=== PATIENT | female | born 1950 | race Caucasian/White ===

== ENCOUNTER 2017-03-13 12:45 | Outpatient (RCR) | payer MEDICARE ==
[~2017-03-13 12:45] MED LIST: ASPIRIN 81M81 MG/TA2 PO; ASPIRIN E.C. 8181 MG PO; CEPHALEXIN500 M1 PO; CIPRO 500MG TA500 MG PO; COMBIVENT INH14.7 GM IH; COMPAZINE10 MG PO; CORDARONE200 MG PO; K-LOR CON; K-LOR CON PO; LASIX 40MG TABL40 MG PO; LEVAQUIN 5500 MG/TAB PO; LOPRESSOR 550 MG/TAB PO; LORTAB 5/500 501 TAB PO; NEULASTA6 MG/0.6 M; NORCO 325 MG-51 TAB PO; PARAPLATIN; TAXOL; TOPROL XL100 MG PO; VITAMIN D1000 IU PO
== END 2017-03-13 16:13 | disposition home or self-care (01) ==
LOC: WSPT 12:45
DX: R26.81 Unsteadiness on feet (principal); Z91.81 History of falling
CPT/HCPCS: G8978-GP; G8979-GP; G8980-GP

== ENCOUNTER 2017-06-22 14:00 | Outpatient (RCR) | payer MEDICARE | END 2017-06-25 14:08 | disposition home or self-care (01) | LOC: WSPT 14:00 | DX: R26.89 Other abnormalities of gait and mobility (principal); R53.1 Weakness | CPT/HCPCS: G8978-GP; G8979-GP ==

== ENCOUNTER 2018-07-16 13:30 | Outpatient (RCR) | payer MEDICARE | END 2018-07-19 11:57 | disposition home or self-care (01) | LOC: WSPT 13:30 | DX: R26.89 Other abnormalities of gait and mobility (principal) | CPT/HCPCS: G8978-GP; G8979-GP; G8980-GP ==

== ENCOUNTER 2019-08-26 11:00 | Outpatient (RCR) | payer MEDICARE | END 2019-08-31 13:22 | disposition home or self-care (01) | LOC: WSPT 11:00 | DX: R26.89 Other abnormalities of gait and mobility (principal) ==

== ENCOUNTER → 2020-08-16 | Outpatient (CLI) | payer MEDICARE | LOC: MC.RAD 15:30 | DX: Z12.31 Encounter for screening mammogram for malignant neoplasm of breast (principal) ==

== ENCOUNTER 2021-03-19 12:36 | Inpatient (IN) | payer MEDICARE ==
[~2021-03-19] VITALS: Ht 182.9 cm; Wt 76.4 kg
[~2021-03-19 12:36] MED LIST changes: +LOPRESSOR100 MG PO; -TOPROL XL100 MG PO
[2021-03-19] MEDS ORDERED: PRINIVIL10 MG PO (13:27)
[2021-03-19 13:58] VITALS: BP 114/57; PULSE 77; TEMP 97.4
[2021-03-19] MEDS ORDERED: ASPIRIN E.C. 8181 MG PO (14:52)
[2021-03-19 14:59] LABS: HEMATOCRIT 45.4 % (37.0-47.0); HEMOGLOBIN 15.1 g/dl (12.5-16.0); MEAN CELL VOLUME 89 fl (80.0-100.0); MEAN CORPUSCULAR HEMOGLOBIN 30 pg (27.0-31.0); MEAN CORPUSCULAR HGB CONC 33 g/dl (33.0-37.0); MEAN PLATELET VOLUME 11.6 fl (7.4-10.4); PLATELET COUNT 205 K/mm3 (130-400); RED BLOOD COUNT 5.08 M/mm3 (4.10-5.30); REDCELL DISTRIBUTION WIDTH-CV 14.5 % (11.5-14.5)
[2021-03-19 15:00] LABS: ARTERIAL BLD GAS O2 SATURATION 97.2 % (92-100); ARTERIAL BLD GAS TCO2 CT 25.3; ARTERIAL BLOOD GAS BASE EXCESS 0.6 (-2-2); ARTERIAL BLOOD GAS HCO3 24.2 meq/L (22-26); ARTERIAL BLOOD GAS pH 7.45 (7.35-7.45)
[2021-03-19 15:12] LABS: ALBUMIN 3.5 gm/dL (3.5-5.0); BILIRUBIN,TOTAL 1.6 mg/dL (0.0-1.0); CALCIUM 9.8 mg/dL (8.4-10.2); CREATININE, serum 0.83 (0.52-1.25); MAGNESIUM 1.8 mg/dL (1.6-2.3); POTASSIUM 3.6 mmol/L (3.4-5.0); TOTAL PROTEIN 7.1 gm/dL (6.4-8.2)
[2021-03-19 15:23] LABS: TROPONIN-I 0.014 ng/mL (0.000-0.035)
[2021-03-19 15:24] LABS: INR 1.2 (0.8-3.0); PROTHROMBIN TIME 13.7 SECONDS (9.7-12.8)
[2021-03-19 15:38] VITALS: BP 115/53; BP 117/68; BP 131/62; PULSE 68; PULSE 74; PULSE 78
[2021-03-19 15:41] LABS: BAND 2 % (0-10); LYMPHOCYTE 3 % (20.0-51.0); NEUTROPHILS 90 % (42.0-75.2)
[2021-03-19 15:42] LABS: TSH w REFLEX 2.32 uIU/mL (0.465-4.680)
[2021-03-19 15:43] LABS: PLATELET ESTIMATE NORMAL (NORMAL)
[2021-03-19 16:59] VITALS: BP 115/55; PULSE 66; TEMP 97.6
--- NOTE | 2021-03-19 17:54 | NUR ---
Patient arrived to floor at 1330 via wheelchair from admissions, at bedside. Patient is alert and oriented, answers questions appropriately, appears SOA and weak. Upon first VS check, patient was found to be at 83% SpO2 on RA, applied NC at 6L to get the patient to 93%. Patient has since been weaned to 4L. IV placed to RAC in one attempt, patient tolerated placement well. Labs drawn and patient to CT per order. IVF initiated. Patient denies needs at this time, call light within reach.
[2021-03-19 19:24] VITALS: BP 105/56; PULSE 79; TEMP 97.6
[2021-03-20 00:21] VITALS: BP 98/45; PULSE 67; TEMP 97.9
[2021-03-20 03:20] VITALS: BP 102/44; PULSE 68; TEMP 98.3
--- NOTE | 2021-03-20 06:30 | NUR ---
Received report form JONE Mcgill, patient lying in bed, alert and oriented.
[2021-03-20 07:26] LABS: BASO # 0.1 (0.0-0.2); BASO % 0.3 % (0.0-2.0); EOS % 0.2 % (0-4.0); GRAN # 12.2 (1.4-6.5); GRAN % 81.7 % (42.2-75.2); HEMATOCRIT 41.2 % (37.0-47.0); HEMOGLOBIN 13.6 g/dl (12.5-16.0); LYMPH # 1.6 (1.2-3.4); LYMPH % 10.4 % (20.0-51.0); MEAN CELL VOLUME 89 fl (80.0-100.0); MEAN CORPUSCULAR HEMOGLOBIN 29 pg (27.0-31.0); MEAN CORPUSCULAR HGB CONC 33 g/dl (33.0-37.0); MEAN PLATELET VOLUME 11.4 fl (7.4-10.4); MONO % 6.8 % (1.7-9.3); PLATELET COUNT 190 K/mm3 (130-400); RED BLOOD COUNT 4.62 M/mm3 (4.10-5.30); REDCELL DISTRIBUTION WIDTH-CV 14.5 % (11.5-14.5)
[2021-03-20 07:43] LABS: ALBUMIN 2.8 gm/dL (3.5-5.0); BILIRUBIN,TOTAL 1.2 mg/dL (0.0-1.0); CALCIUM 8.9 mg/dL (8.4-10.2); CREATININE, serum 0.75 (0.52-1.25); POTASSIUM 3.1 mmol/L (3.4-5.0); TOTAL PROTEIN 5.9 gm/dL (6.4-8.2)
[2021-03-20 08:03] VITALS: BP 110/51; PULSE 91; TEMP 98
--- NOTE | 2021-03-20 08:29 | NUR ---
Patient is lying in bed, alert and oriented, vss, reports no nausea or pain. Nasal canula was repositioned. Asked about home medications, explained they are on hold for physician orders. Call light within reach. No further needs right now.
[2021-03-20 12:19] VITALS: BP 102/52; PULSE 59; TEMP 97.6
--- NOTE | 2021-03-20 13:17 | NUR ---
First visit from the web assistant. No needs right now.
[2021-03-20 13:39] LABS: COLLECTION METHOD CLEAN CATCH
[2021-03-20 13:57] LABS: MUCOUS Present /lpf; PH 5 (5-8); URINE APPEARANCE Hazy; URINE BACTERIA Many /hpf; URINE BILIRUBIN Negative (NEGATIVE); URINE BLOOD Negative (NEGATIVE); URINE COLOR Yellow; URINE GLUCOSE Negative (NEGATIVE); URINE KETONE Negative (NEGATIVE); URINE LEUKOCYTE ESTERASE 2+ (NEGATIVE); URINE NITRATE Positive (NEGATIVE); URINE PROTEIN(semi-quant) Negative (NEGATIVE); URINE RBC 0-2 /hpf
--- NOTE | 2021-03-20 14:33 | NUR ---
Vocal Music Instructor met with patient and patient's , Diaz (ph#[phone]) to discuss discharge planning. Patient lives in [place] with her and also advised that her mother in law lives with them in the basement. Diaz advised that his sister is also around during the day as she does office work out of there home so there is usually always someone around at home. Patient sees Dr. Daniel for primary care and obtains medications from [facility] with no difficulties. Patient normally does not use DME but has a cane and walker at home. Patient states she was independent with ADLS up until a few days ago. Diaz advised that they have stool risers at home and he is also going to be installing more grab bars at home. Patient plans to return home upon discharge. SW reviewed PT's recommendation for Home Health services and patient is agreeable to this. SW provided Medicare.gov list of HH agencies and patient would like some time to review list. SW to continue to follow for patient choice. Discharge Plan: Home with Home Health
[2021-03-20 16:25] VITALS: BP 98/55; PULSE 98; TEMP 98
[2021-03-20 19:42] VITALS: BP 98/60; PULSE 103; TEMP 98.3
--- NOTE | 2021-03-20 20:00 | NUR ---
Report received, assumed care for shift commander. Assessment complete. VS stable. A&Ox3. Sitting up in bed watching TV. Denies nausea/pain/shortness of breath. States she is feeling better today compared to yesterday. States she still feels weak but was able to walk earlier on hi. Currently on room air. Plan of care discussed for this shift to include HS meds/antibiotics/calling for questions/concerns. Verbalizes understanding/denies needs. Call light in reach. Will monitor.
[2021-03-21] VITALS (7 sets, daily range): BP systolic 90–116; BP diastolic 43–88; PULSE 69–115; TEMP 97.4–98.1
[2021-03-21 06:44] LABS: BASO # 0.1 (0.0-0.2); BASO % 0.4 % (0.0-2.0); EOS # 0.1 (0.0-0.7); EOS % 0.9 % (0-4.0); GRAN # 8.6 (1.4-6.5); GRAN % 76.9 % (42.2-75.2); HEMATOCRIT 38.9 % (37.0-47.0); HEMOGLOBIN 12.8 g/dl (12.5-16.0); LYMPH # 1.2 (1.2-3.4); LYMPH % 10.9 % (20.0-51.0); MEAN CELL VOLUME 90 fl (80.0-100.0); MEAN CORPUSCULAR HEMOGLOBIN 30 pg (27.0-31.0); MEAN CORPUSCULAR HGB CONC 33 g/dl (33.0-37.0); MEAN PLATELET VOLUME 11.2 fl (7.4-10.4); MONO # 1.1 (0.1-0.6); MONO % 10.1 % (1.7-9.3); PLATELET COUNT 189 K/mm3 (130-400); RED BLOOD COUNT 4.33 M/mm3 (4.10-5.30); REDCELL DISTRIBUTION WIDTH-CV 14.5 % (11.5-14.5)
[2021-03-21 07:04] LABS: CALCIUM 8.5 mg/dL (8.4-10.2); CREATININE, serum 0.58 (0.52-1.25); POTASSIUM 3.4 mmol/L (3.4-5.0)
--- NOTE | 2021-03-21 09:05 | NUR ---
Pt awake and alert upon entry, sitting in recliner, Phy The in room with Pt. No C/O pain at this time. Shift assessments complete, left Pt call light in reach, sitting in the recliner.
--- NOTE | 2021-03-21 13:19 | NUR ---
Initial visit; Patient thanked Solutions Manager for looking in on her, visiting, and offering God's blessings and to keep her in Solutions Manager's prayers.
--- NOTE | 2021-03-21 15:51 | NUR ---
Coagulating Drying Supervisor met with patient and patient's , Diaz to review discharge plan. Diaz inquired about [facility] as his mother has stayed there before. Diaz then asked what PT/OT were recommending. MIKHAIL advised that PT/OT are recommending home with services. Patient would like to return home with HH services. Patient and patient's , Diaz reviewed Medicare.gov list of HH agencies and selected [facility] as first preference and [facility] as second preference. MIKHAIL contacted Amaya at [facility] and faxed referral. Amaya followed up with MIKHAIL and advised they can accept. Discharge Plan: Home with [facility].
--- NOTE | 2021-03-21 18:06 | NUR ---
Pt resting in the room today, no C/O pain throughout the day. Pt has been up to the recliner for several hours. Replaced tegaderm on IV site, area under the tegaderm is reddened but not tender, no leakage noted from IV site. VS remain stable.
--- NOTE | 2021-03-22 02:07 | NUR ---
Tele contacted this nurse to inform of pt.'s of ventricular tachycardia rythm. Tele informed nurse pt. had previous episode at 2138 with 9 beats and another VTACH rythm at 0155. Pt. VSS, physician notified and ordered cardiology consult and additional labs to be drawn. Will continue to monitor. Call light within reach.
[2021-03-22 03:26] LABS: HEMATOCRIT 39.8 % (37.0-47.0); MEAN CELL VOLUME 89 fl (80.0-100.0); MEAN CORPUSCULAR HEMOGLOBIN 29 pg (27.0-31.0); MEAN CORPUSCULAR HGB CONC 33 g/dl (33.0-37.0); MEAN PLATELET VOLUME 10.6 fl (7.4-10.4); PLATELET COUNT 204 K/mm3 (130-400); RED BLOOD COUNT 4.48 M/mm3 (4.10-5.30); REDCELL DISTRIBUTION WIDTH-CV 14.6 % (11.5-14.5)
[2021-03-22 03:38] LABS: CALCIUM 8.7 mg/dL (8.4-10.2); CREATININE, serum 0.58 (0.52-1.25); MAGNESIUM 1.7 mg/dL (1.6-2.3); POTASSIUM 4.1 mmol/L (3.4-5.0)
[2021-03-22 04:12] VITALS: BP 110/64; PULSE 67; TEMP 98.1
--- NOTE | 2021-03-22 05:52 | NUR ---
Pt. sitting up in bed, A/O x4, reports no pain, free of n/v/d. VSS. Slept on and off through out night. Piperacillin/Tazobactam running via IV right forarm 100mL at 200mL/hr.O2 NC 1L. Pt. expresses no further needs at this time. Call light within reach.
[2021-03-22 07:38] VITALS: BP 113/63; PULSE 59
--- NOTE | 2021-03-22 07:54 | NUR ---
Pt doing well at this time. She is sitting up in bed eating breakfast. She is not happy with the mechanical soft diet. States that she does pretty well with eating and that she knows the things that she shouldn't eat. No pain complaints. O2 at 1L
[2021-03-22] MEDS ORDERED: AMOXICILLIN 8751 TAB PO (11:18)
[2021-03-22] MEDS ORDERED: VENTOLIN0.09 MG IH (11:20)
[2021-03-22] MEDS ORDERED: PRINIVIL5 MG PO (11:34)
[2021-03-22] MEDS ORDERED: LASIX 20MG TABL20 MG PO (11:35)
[2021-03-22 11:49] VITALS: BP 112/62; PULSE 60; TEMP 98
--- NOTE | 2021-03-22 11:50 | NUR ---
Pt doing well, she is sitting up in the chair. She does have discharge orders, which she is aware of. States her ride will be here around 3:30. She has ordered some lunch, no other needs or complaints, will continue to monitor
--- NOTE | 2021-03-22 13:52 | NUR ---
Patient was able to be ambulatory on room air while walking up and down the hallway. Patients SPO2 upon returning to room was 96%.
--- NOTE | 2021-03-22 13:59 | NUR ---
Etl Data Architect attended clinical rounds with the team and patient to discharge home today with [facility]. SW contacted Amaya at [facility] and faxed discharge orders. MIKHAIL also provided patient's 's phone number to Amaya to set up the first visit. SW reviewed patient's exercise oximetry and patient will not qualify for home oxygen. [facility]
--- NOTE | 2021-03-22 14:40 | NUR ---
Reviewed discharge instructions with patient. INT removed from right forearm.
--- NOTE | 2021-03-22 15:06 | NUR ---
Pt escorted out at this time
[2021-06-27] MEDS ORDERED: LASIX 20MG TABL20 MG PO (12:20)
[2021-06-27] MEDS ORDERED: ZESTRIL 5MG5 MG PO (12:21)
== END 2021-03-22 15:06 | disposition home health service (06) | DRG 177 ==
LOC: MEDICAL 12:36
PROVIDERS: Nurse Practitioner Family; Physician Assistant; ADMIT Hospitalist
DX: J69.0 Pneumonitis due to inhalation of food and vomit (principal); J96.01 Acute respiratory failure with hypoxia; I42.8 Other cardiomyopathies; E44.0 Moderate protein-calorie malnutrition; E87.6 Hypokalemia; I48.0 Paroxysmal atrial fibrillation; R53.81 Other malaise; E78.5 Hyperlipidemia, unspecified; Z96.651 Presence of right artificial knee joint; I25.10 Atherosclerotic heart disease of native coronary artery without angina pectoris; R13.10 Dysphagia, unspecified; I95.9 Hypotension, unspecified; R63.4 Abnormal weight loss; Z68.21 Body mass index [BMI] 21.0-21.9, adult; Z85.118 Personal history of other malignant neoplasm of bronchus and lung; Z95.0 Presence of cardiac pacemaker; Z87.891 Personal history of nicotine dependence
CPT/HCPCS: 99222-AI; 99232-AI; 99239; J1650; J2543; J3475; J7030; Q9967

== ENCOUNTER → 2021-06-27 | Outpatient (CLI) | payer MEDICARE ==
[~2021-06-27] VITALS: Ht 175.3 cm; Wt 64.0 kg
[~2021-06-27] MED LIST changes: +AMOXICILLIN 8751 TAB PO; +LASIX 20MG TABL20 MG PO; +PRINIVIL10 MG PO; +PRINIVIL5 MG PO; +VENTOLIN0.09 MG IH; +ZESTRIL 5MG5 MG PO
[2021-06-27 12:23] VITALS: BP 119/79; PULSE 71; TEMP 97.9
--- NOTE | 2021-06-27 13:20 | NUR ---
pt to ct per wheelchair. Pt on ct in supine position. Monitors applied and O2 on at 2l/nc.
[2021-06-27 13:25] VITALS: BP 110/67; PULSE 60
[2021-06-27 13:30] VITALS: BP 93/71; PULSE 60
--- NOTE | 2021-06-27 13:33 | NUR ---
Specimens obtained and placed in cytolyt and formalin by Dr Hernandez. Specimen labeled.
[2021-06-27 13:35] VITALS: BP 114/73; PULSE 60
[2021-06-27 13:40] VITALS: BP 115/68; PULSE 62
[2021-06-27 13:45] VITALS: BP 114/78; PULSE 65
== END ==
LOC: COL.RAD 12:02
DX: E07.9 Disorder of thyroid, unspecified (principal); J98.59 Other diseases of mediastinum, not elsewhere classified
CPT/HCPCS: 32106

== ENCOUNTER 2023-01-01 11:02 | Outpatient (CLI) | payer MEDICARE ==
[~2023-01-01] VITALS: Ht 175.3 cm; Wt 52.8 kg
[2023-01-01 11:37] VITALS: BP 120/82; PULSE 60; TEMP 97.9
[2023-01-01] MEDS ORDERED: LIPITOR20 MG PO (13:31)
== END 2023-01-01 13:32 ==
LOC: EUO 11:02
DX: M81.0 Age-related osteoporosis without current pathological fracture (principal)
CPT/HCPCS: J3489

== ENCOUNTER 2024-02-15 13:11 | Inpatient (IN) | payer MEDICARE ==
[~2024-02-15] VITALS: Ht 180.3 cm; Wt 42.3 kg
[~2024-02-15 13:11] MED LIST changes: +LIPITOR20 MG PO
[2024-02-15] MEDS ORDERED: Azithromycin 500 MG in NS 250 ML IV ONE (14:30)
[2024-02-15] MEDS ORDERED: NS 1,000 ML IV ONE (14:30)
[2024-02-15] MEDS ORDERED: Mag/Al Hydrox/Simeth Susp 30 ML CUP PO ONE (14:30)
[2024-02-15] MEDS ORDERED: Albuterol/Ipratropium 3 MG-0.5 MG/3 ML Neb Soln IH ONE (14:30)
[2024-02-15] MEDS ORDERED: cefTRIAXone 2 G in Water For Injection,Sterile 20 ML IV ONE (14:30)
[2024-02-15 15:23] LABS: COLLECTION METHOD CLEAN CATCH
[2024-02-15 15:23] LABS: BASO # 0.1 K/mm3 (0.0-0.2); BASO % 0.6 % (0.0-2.0); EOS # 0.1 K/mm3 (0.0-0.7); EOS % 0.9 % (0.0-4.0); GRAN # 5.9 K/mm3 (1.4-6.5); GRAN % 71.7 % (42.2-75.2); HEMATOCRIT 41.1 % (37.0-47.0); HEMOGLOBIN 13.5 g/dl (12.5-16.0); LYMPH # 1.4 K/mm3 (1.2-3.4); MEAN CELL VOLUME 93 fl (80.0-100.0); MEAN CORPUSCULAR HEMOGLOBIN 31 pg (27-31); MEAN CORPUSCULAR HGB CONC 33 g/dl (33.0-37.0); MEAN PLATELET VOLUME 10.7 fl (7.4-10.4); MONO # 0.8 K/mm3 (0.1-0.6); MONO % 9.6 % (1.7-9.3); PLATELET COUNT 202 K/mm3 (130-400); RED BLOOD COUNT 4.42 M/mm3 (4.10-5.30)
[2024-02-15 15:40] LABS: ALBUMIN 3.3 gm/dL (3.4-4.8); CREATININE, serum 0.86 mg/dL (0.57-1.11); MAGNESIUM 1.9 mg/dL (1.6-2.6); POTASSIUM 4.3 mmol/L (3.5-4.5); TOTAL PROTEIN 6.6 gm/dL (6.2-8.1)
[2024-02-15 15:48] LABS: PH 6.5 (5.0-8.5); URINE APPEARANCE CLEAR (CLEAR/HAZY); URINE BLOOD NEGATIVE (NEGATIVE); URINE COLOR YELLOW (YELLOW); URINE GLUCOSE NEGATIVE (NEGATIVE); URINE KETONE NEGATIVE (NEGATIVE); URINE NITRATE NEGATIVE (NEGATIVE); URINE PROTEIN(semi-quant) 1+ (NEGATIVE)
[2024-02-15 15:57] LABS: INR 1.1 (0.8-3.0); PROTHROMBIN TIME 12.4 SECONDS (9.7-12.8)
[2024-02-15 16:00] LABS: PARTIAL THROMBOPLASTIN TIME 36.7 SECONDS (26.0-37.0); THYROID STIMULATING HORMONE 1.514 uIU/mL (0.350-4.940)
[2024-02-15 16:02] LABS: TROPONIN-I 0.053 ng/mL (0.00-0.033)
[2024-02-15 16:23] LABS: URINE RBC 0-2 /hpf (0-2)
[2024-02-15 16:24] LABS: MUCOUS PRESENT (NOT PRESENT)
[2024-02-15] MEDS ORDERED: Furosemide 40 MG/4 ML VIAL IV ONE (16:30)
[2024-02-15] MEDS ORDERED: Docusate Sodium 100 MG CAP PO PRN (17:00)
[2024-02-15] MEDS ORDERED: Acetaminophen 325 MG TAB PO PRN (17:00)
[2024-02-15] MEDS ORDERED: Polyethylene Glycol 3350 17 GM PDS PO PRN (17:00)
[2024-02-15] MEDS ORDERED: Ondansetron 4 MG/2 ML VIAL IV PRN (17:00)
[2024-02-15] MEDS ORDERED: VITAMIN D 50,1.25 MG PO (17:16)
[2024-02-15 18:05] VITALS: BP_SYST 109
--- NOTE | 2024-02-15 18:05 | NUR ---
PATIENT ARIVED FROM ER AWAKE AND ALERT. PATIENTS AT BEDSIDE. PATIENT ANSWERS ORIENTATION QUESTIONS APPROPRIATELY. PATIENT APPEARS TO BE SEVERELY MALNOURISHED. SHE HAS NO LOWER DENTURES IN CURRENTLY. PER PATIENTS SHE USED TO WEIGH 180 POUNDS BUT HAS BEEN DECLINING AT HOME. PATEINTS FEET WITH POOR CIRCULATION. SACRUM SLIGHTLY RED OTHER WINN INTACT. TATI LIGHT WITHIN REACH. MED REC UNABLE TO BE DONE. PATIENT AND UNAWARE OF MEDICATIONS TAKEN, PHARMACY CLOSED AT THIS TIME FOR CALL TO REVIEW. FALL PRECAUTIONS PU TIN PLACE. CALL LIGHT WITHIN REACH.
[2024-02-15 18:18] VITALS: BP 109/78; PULSE 108; TEMP 97.8
[2024-02-15] MEDS ORDERED: Lidocaine 2% (20 MG/ML) 20 ML UROJET UR ONE (19:00)
--- NOTE | 2024-02-15 19:00 | NUR ---
16F LERNER CATHETER PLACED, PATIENT DID NOT TOLERATED WELL. THIS RN SPOKE WITH NIGHT PA REGARDING PATIENTS ONGOING PAIN TO URETHRA AFTER FOLEUY INSERTION. PATIENT CONTIONUES TO MESS WITH HER CATHETER DESPITE EDUCATION AND DIRECTION FROM STAFF. UROJET ORDERED, SEE EMAR. PATIENT SITTING UP IN BED. CALL LIGHT WTIHIN REACH. BED ALARM ON.
[2024-02-15 19:34] VITALS: BP 113/80; PULSE 107; TEMP 97.5
--- NOTE | 2024-02-15 20:52 | NUR ---
LAB CALLED AT 20:17 WITH A TROPONIN OF 0.057. THIS INFORMATION WAS PROVIDED TO TISH MURPHY AT 20:24.
[2024-02-15] MEDS ORDERED: Furosemide 40 MG/4 ML VIAL IV SCH (21:00)
[2024-02-15 23:16] VITALS: BP 99/76; PULSE 96; TEMP 97.3
--- NOTE | 2024-02-15 23:59 | NUR ---
TISH SAMPSON CONTACTED REGARDING THE PATIENTS MARGINAL BP AND THE 40 OF IV LASIX THAT IS ORDERED. PER SELENA SERRA AT THIS TIME TO GIVE THE 40 OF IV LASIX.
[2024-02-16] VITALS (16 sets, daily range): BP systolic 82–113; BP diastolic 50–72; PULSE 69–111; TEMP 97–98.3
--- NOTE | 2024-02-16 00:02 | NUR ---
LAB CALLED AT 22:46 WITH A TROPONIN OF 0.056. TISH SAMPSON NOTIFIED OF THIS RESULT AT MIDNIGHT. NO NEW ORDERS.
[2024-02-16 07:33] LABS: BASO # 0.1 K/mm3 (0.0-0.2); BASO % 0.6 % (0.0-2.0); EOS % 0.4 % (0.0-4.0); GRAN # 5.2 K/mm3 (1.4-6.5); GRAN % 65.5 % (42.2-75.2); HEMOGLOBIN 14.3 g/dl (12.5-16.0); LYMPH # 1.8 K/mm3 (1.2-3.4); LYMPH % 22.1 % (20.0-51.0); MEAN CELL VOLUME 92 fl (80.0-100.0); MEAN CORPUSCULAR HEMOGLOBIN 30 pg (27-31); MEAN CORPUSCULAR HGB CONC 33 g/dl (33.0-37.0); MEAN PLATELET VOLUME 11.4 fl (7.4-10.4); MONO # 0.9 K/mm3 (0.1-0.6); PLATELET COUNT 228 K/mm3 (130-400)
[2024-02-16 07:37] LABS: CALCIUM 9.7 mg/dL (8.4-10.2); CREATININE, serum 0.88 mg/dL (0.57-1.11); POTASSIUM 3.5 mmol/L (3.5-4.5)
--- NOTE | 2024-02-16 07:39 | NUR ---
NURSING SHIFT ASSESSMENT COMPLETED. THE PATIENT IS ALERT BUT NOT FULLY ORIENTED. THE PATIENT DOESN'T ALWAYS SPEAK WHEN SPOKEN TO. WHEN THE PATIENT DOES SPEAK, SHE SPEAKS CLEARLY AND IS ABLE TO ANSWER MOST QUESTIONS CORRECTLY. THE PATIENT DENIED PAIN. CALL LIGHT WITHIN REACH, BED IN LOW POSITION, BED ALARM ON.
[2024-02-16] MEDS ORDERED: Albuterol/Ipratropium 3 MG-0.5 MG/3 ML Neb Soln IH PRN (10:00)
[2024-02-16] MEDS ORDERED: predniSONE 20 MG TAB PO SCH (10:00)
--- NOTE | 2024-02-16 10:20 | NUR ---
PT TRANSFERED OUT OF ROOM VIA WHEELCHAIR FOR THORA/ECHO ACCOMPANIED BY CARDIO STAFF.
[2024-02-16 12:40] LABS: PLEURAL FLUID RBC 2000 /mm3 (0-0); PLEURAL FLUID WBC 734 /mm3
[2024-02-16 12:50] LABS: PLEURAL FLUID APPEARANCE HAZY; PLEURAL FLUID COLOR YELLOW
--- NOTE | 2024-02-16 12:52 | NUR ---
SEE VITAL SIGNS FLOW SHEET FOR POST OP VITALS STARTING AT 11:30. [facility] STUDENT KAREN.
[2024-02-16] MEDS ORDERED: Albuterol/Ipratropium 3 MG-0.5 MG/3 ML Neb Soln IH SCH (13:00)
[2024-02-16] MEDS ORDERED: NS 500 ML IV ONE (15:15)
--- NOTE | 2024-02-16 16:18 | NUR ---
flat screen worker met with patient's nurse to determine any concerns. Nurse reports patient's has been very protective of patient and answering questions for her. SHILOH contacted OT whom visited with patient and they stated they would be recommending home with home health. SHILOH met with patient and her , Diaz, P# [phone]. Patient lives in [place] with her . PCP is Dr. Daniel, patient/ reports patient was seen by PCP in September/October. Pharmacy is [facility]. No issues affording medications. Patient reports she has a DPOA-HC with Diaz as the primary, but does not have a copy. Diaz reports her PCP may have a copy. DME is a cane, shower chair and SW notes she has a rollator walker. Patient reports she was previously independent with ADLS. SW discussed feeding. Patient reports she is eating okay but reports that she has been aspirating on food and has had trouble with swallowing her food. Patient and are open to SNF if patient is needing these services and is familiar with the social science manager at [facility] and may be interested in going there but would like the Medicare.gov list if SNF is recommended at time of discharge. SHILOH provided the Medicare.gov list of home health services as this is the current recommendation from OT. SHILOH explained she would continue to follow patient's care and recommendations. Patient and understand. Shiloh left a voicemail for Huyen at [facility]. Discharge plan: Home with home health pending medical recommendations, open to going to a SNF
--- NOTE | 2024-02-16 19:05 | NUR ---
PATIENT RESTING IN BED WITH TV ON WITH NO FAMILY PRESENT WITH NO ACUTE DISTRESS NOTED. PATIENT ON ROOM AIR. INT TO LEFT AC INTACT WITH NO COMPLICATIONS NOTED. TELEMETRY INTACT. LERNER CATH INTACT, PATENT, AND DRAINING CLEAR YELLOW URINE. PATIENT DENIES ANY NEEDS. PATIENT CARE ASSUMED FROM CHANO AT THIS TIME. BED IN LOW POSITION WITH WHEELS LOCKED WITH RAILS UP X3 AND CALL LIGHT WITHIN REACH.
[2024-02-16] MEDS ORDERED: Atorvastatin 20 MG TAB PO SCH (21:00)
--- NOTE | 2024-02-16 23:16 | NUR ---
PATIENT RESTING IN BED WITH TV ON WITH NO ACUTE DISTRESS NOTED. PATIENT ON ROOM AIR. INT TO LEFT AC INTACT WITH NO COMPLICATIONS NOTED. LERNER CATH INTACT, PATENT, AND DRAINING CLEAR YELLOW URINE. ASSESSMENT AND MEDICATION ADMINISTRATION COMPLETED AT THIS TIME. PATIENT TOLERATED WELL. PATIENT REQUESTED WATER AND WAS GIVEN ICE WITH WATER IN A CUP. MEDICATIONS TAKEN WITH SOME APPLE SAUCE. ALL NEEDS MET. BED IN LOW POSITION WITH WHEELS LOCKED WITH RAILS UP X3 AND CALL LIGHT WITHIN REACH. BED ALARM ON.
[2024-02-17] VITALS (13 sets, daily range): BP systolic 72–110; BP diastolic 45–73; PULSE 86–100; TEMP 97.5–99.6
--- NOTE | 2024-02-17 01:45 | NUR ---
PATIENT ALERT AND AGITATED. PATIENT ATTEMPTING TO CLIMB OUT OF BED. WHEN ASKED WHERE SHE WAS GOING SHE STATED "IM GOING TO GO GET SOME WATER." PATIENT ASSISTED BACK TO BED. PATIENT INFORMED OF BEING NPO FOR YEHUDA SCAN IN AM. PATIENT AGITATED ABOUT NOT BEING ABLE TO HAVE WATER AND STATED "IT'S ONLY 3." PATIENT ATTEMPTED TO BE REORIENTED BUT FAILED.
--- NOTE | 2024-02-17 06:34 | NUR ---
PATIENT CONTINUES TO BE AGITATED DUE TO NOT BEING ABLE TO DRINK WATER. PATIENT REFUSED MORNING LAB DRAW. PRIMARY NURSE IN TO TALK TO PATIENT TO EXPLAIN. PATIENT OBSERVED RASING HER HANDS SHACKING THEM IN THE AIR AND KNOCKING ON HER LEGS. PATIENT ALERT BUT CONFUSED. STATING "MAYBE TOMORROW" EVEN WHEN PRIMARY NURSE IS EXPLAINING IT IS 0630 IN THE MORNING.
--- NOTE | 2024-02-17 08:00 | NUR ---
Patient is resting in bed, alert and oriented x 3, asking why she can not get food or water, educated about the scheduled procedure. Student nurse at bedside. Expected to have a lexiscan at 1030am. Assessment completed. Bed alarm on. Call light within reach. Catheter chávez in place, tele in place, Vpaced. No further needs at this time.
--- NOTE | 2024-02-17 08:47 | NUR ---
0730 pt a/o x 4, left lung sounds diminished, right upper clear, 02 sat @ 97 on RA. reddness noted to cocax area skin intract, repositioned to right side. INT L AC site intact no redness. no c/o of pain at this time
[2024-02-17 09:01] LABS: CALCIUM 9.7 mg/dL (8.4-10.2); CREATININE, serum 0.86 mg/dL (0.57-1.11); POTASSIUM 4.4 mEq/L (3.5-4.5)
[2024-02-17 09:15] LABS: MAGNESIUM 2.1 mg/dL (1.6-2.6)
--- NOTE | 2024-02-17 12:23 | NUR ---
elementary school social worker contacted Dr Daniel's office and spoke with Dr Daniel, patient's primary care provider for several years. Dr Daniel stated that she has previously tried to get patient to admit to the [facility] hospice house, however patient and spouse declined. Worker collaborated with Dr Sparks regarding Dr Daniel's statement that patient has terminal diagnosis of CHF and failure to thrive and she supports Hospice House and would follow patient's care there. Worker attended Palliative care meeting with Dr Sparks and multi disciplinary rounding team. Patient and spouse very tearful, however, agree to Hospice house. Worker face timed Dr Daniel, who spoke with patient and spouse and provided assurances that patient would receive great care and that she would follow and give all orders needed. Worker confirmed that [facility] has open beds availability. Referral made to [facility]. Await their screening. Worker advised that patient would transfer via ambulance when accepted today or tomorrow.
--- NOTE | 2024-02-17 14:07 | NUR ---
Initial visit; Patient very upset waiting for a to come in. She said she was due for tests and hasn't eaten yet and very uncomfortable. Band Director soothed her (at least for the time she was visiting) and offered an explanation why 'chastity are sometimes late and also offered prayer for Nirali. Nirali has since become a patient on Palliative Care. Band Director had mentioned that she would keep her in Band Director's prayers and will follow-up.
--- NOTE | 2024-02-17 14:53 | NUR ---
lithopone mill worker contacted [facility] to determine if they are able to accept patient. Jaime Coleman is still reviewing and will follow up with social staff worker before end of today. Jaime Coleman will be contacting the family members to discuss any questions. MIKHAIL met with family members and provided the phone number to Jaime Coleman so they can ensure they answer the number when it comes through. Discharge plan: [facility]
--- NOTE | 2024-02-17 16:16 | NUR ---
Social work student called [facility] and scheduled transportation for 9:30 am to set up transportation to [facility].
--- NOTE | 2024-02-17 16:46 | NUR ---
biofuels plant construction worker was notified patient was approved for [facility]. [facility] asked if patient is a DNR/DNI and if they are putting a drain in for the fluid. Patient is going to room 3 and [facility] would like to have patient transported tomorrow around 9:30 am. MIKHAIL studentRuth, scheduled EMS for 9:30 am tomorrow morning. MIKHAIL met with patient and her and explained patient would be picked up tomorrow at 9:30 am. Diaz asked if patient perks up and is able to discharge from Hospice is that a thing. MIKHAIL explained patient will have Dr. Daniel following her and she will be able to continue to follow her care. Diaz understood. Discharge plan: [facility]
--- NOTE | 2024-02-17 17:27 | NUR ---
1305 flushed iv site and changed tegaderm dressing. Cleansed area around site containing dry blood. pt tolerated well. no redness or swelling. patient comfortable in bed at this time.
--- NOTE | 2024-02-17 17:32 | NUR ---
repositioned pt at 1407. There is a reddened area on her coccyx approximitely the size of a fist. Area is blanchable. Pt is comfortable in bed on her right side. No c/o SOA at this time. mucous membranes dry, urine out put 230ml poor skin turgour. encouraged fluids.
--- NOTE | 2024-02-17 17:33 | NUR ---
Rechecking pt BP since SBP was in 70's. Patient alert and oriented, denies any discomfort. Rechecking SBP right arm 83/52, left arm 77/45. Call placed to Dr. Sparks, verbal order to give bolus 500 NS at 75mls/hr.
[2024-02-17] MEDS ORDERED: NS 500 ML IV SCH (17:45)
[2024-02-17] MEDS ORDERED: Morphine Oral Concentrate 20 MG/ML UD SL PRN (18:15)
[2024-02-17] MEDS ORDERED: Haloperidol Lactate 5 MG/ML VIAL IV PRN (18:15)
[2024-02-17] MEDS ORDERED: LORazepam 2 MG/ML 1 ML VIAL IV PRN (18:15)
[2024-02-17] MEDS ORDERED: Scopolamine 1 MG Delivered 3-Day PATCH TD SCH (18:15)
[2024-02-17] MEDS ORDERED: Carboxymethylcellulose PF Ophth 0.4 ML DROPPERETTE OP PRN (18:15)
--- NOTE | 2024-02-17 19:12 | NUR ---
PATIENT RESTING IN BED WATCHING TV WITH NO FAMILY PRESENT WITH NO ACUTE DISTRESS NOTED. PATIENT ON ROOM AIR. NS INFUSING INTO LEFT AC WITH NO COMPLICATIONS NOTED. LERNER CATH INTACT AND DRAINING CLEAR YELLOW URINE. PATIENT DENIES ANY NEEDS AT THIS TIME. PATIENT CARE ASSUMED FROM ROSSY. BED IN LOW POSITION WITH WHEELS LOCKED WITH RAILS UP X3 AND CALL LIGHT WITHIN REACH. BED ALARM ON.
--- NOTE | 2024-02-17 19:40 | NUR ---
PATIENT SITTING UP IN BED WATCHING TV WTIH NO FAMILY PRESENT WITH NO ACUTE DISTRESS NOTED. PATIENT ON ROOM AIR. NS INFUSING INTO LEFT AC WITH NO COMPLICATIONS NOTED. ASSESSMENT AND MEDICATION ADMINISTRATION COMPLETED AT THIS TIME. PATIENT TEARFUL AND WAVING HAND IN HEAR WHILE TALKING TO PRIMARY NURSE. ATIVAN GIVEN FOR ANXIETY. PATIENT TOLERATED WELL. PUDDING GIVEN WITH MEDICATIONS AND CUP OF ICE PER PATIENT REQUET. ALL NEEDS MET. BED IN LOW POSITION WITH WHEELS LOCKED WITH RAILS UP X3 AND CALL LIGHT WITHIN REACH. BED ALARM ON.
[2024-02-18] VITALS: BP 94/56; PULSE 87; TEMP 98.5
[2024-02-18 00:15] VITALS: BP_SYST 94
[2024-02-18 04:00] VITALS: BP 88/62; PULSE 87; TEMP 98
[2024-02-18] MEDS ORDERED: ASPIRIN 81M81 MG/TA2 PO (08:52)
[2024-02-18] MEDS ORDERED: IPRATROPIUM BROM3 M1 IH (08:52)
[2024-02-18] MEDS ORDERED: DULCOLAX S10 MG/SUPP RC (08:53)
[2024-02-18] MEDS ORDERED: TRANSDERM-0.5 MG/21 TD (08:53)
[2024-02-18] MEDS ORDERED: SYSTANE 0.4%-0.1 SOL OU (08:53)
[2024-02-18] MEDS ORDERED: ROXANOL 20MG20 MG/ML SL (08:55)
[2024-02-18] MEDS ORDERED: ATIVAN 1MG T1 MG/TAB PO (08:55)
[2024-02-18 09:00] VITALS: BP_SYST 89
[2024-02-18] MEDS ORDERED: Ergocalciferol 1.25 MG (50,000 UNITS) CAPSULE PO SCH (09:00)
[2024-02-18 09:03] VITALS: BP 89/52; PULSE 93; TEMP 97.7
--- NOTE | 2024-02-18 10:19 | NUR ---
mill worker secure emailed discharge orders and vital updates to [facility]. SW was notified patient had not been picked up by EMS yet. SW contacted EMS and was notified they would be heading that way shortly. SW notified patient, patient's , patient's nurse, community health counselor and [facility] that patient would be running late due to EMS. Discharge plan: [facility]
== END 2024-02-18 10:00 | disposition hospice, home (50) | DRG 280 ==
LOC: COL.ER 13:11 → MEDICAL 16:48
PROVIDERS: Internal Medicine; ADMIT Hospitalist
PROC: 0W9B3ZZ Drainage of Left Pleural Cavity, Percutaneous Approach (ICD-10-PCS; principal; 2024-02-16)
DX: I11.0 Hypertensive heart disease with heart failure (principal); E43 Unspecified severe protein-calorie malnutrition; I21.A1 Myocardial infarction type 2; I50.43 Acute on chronic combined systolic (congestive) and diastolic (congestive) heart failure; I47.20 Ventricular tachycardia, unspecified; N02.B1 Recurrent and persistent immunoglobulin A nephropathy with glomerular lesion; K82.1 Hydrops of gallbladder; M84.48XA Pathological fracture, other site, initial encounter for fracture; G72.81 Critical illness myopathy; I31.39 Other pericardial effusion (noninflammatory); Z68.1 Body mass index [BMI] 19.9 or less, adult; Z51.5 Encounter for palliative care; I42.8 Other cardiomyopathies; I25.10 Atherosclerotic heart disease of native coronary artery without angina pectoris; E78.5 Hyperlipidemia, unspecified; Z96.651 Presence of right artificial knee joint; Z66 Do not resuscitate; R13.10 Dysphagia, unspecified; R53.81 Other malaise; K59.00 Constipation, unspecified; F10.10 Alcohol abuse, uncomplicated; G43.909 Migraine, unspecified, not intractable, without status migrainosus; F17.210 Nicotine dependence, cigarettes, uncomplicated; I08.0 Rheumatic disorders of both mitral and aortic valves; K44.9 Diaphragmatic hernia without obstruction or gangrene; M85.80 Other specified disorders of bone density and structure, unspecified site; Z20.822 Contact with and (suspected) exposure to COVID-19; Z87.01 Personal history of pneumonia (recurrent); Z85.118 Personal history of other malignant neoplasm of bronchus and lung; Z95.810 Presence of automatic (implantable) cardiac defibrillator; Z79.899 Other long term (current) drug therapy; Z91.148 Patient's other noncompliance with medication regimen for other reason; Z23 Encounter for immunization
CPT/HCPCS: A9500-JZ; J0456; J0696; J1650; J1940; J2060; J2405; J7030; J7040; J7050; J7512